=== PATIENT | male | born 1985 | race Caucasian/White ===

== ENCOUNTER 2017-04-20 10:50 | Emergency (ER) | payer SELFPAY ==
[~2017-04-20] VITALS: Ht 172.7 cm; Wt 68.0 kg
[2017-04-20 11:01] VITALS: BP 152/104
[2017-04-20] MEDS ORDERED: KETOROLAC 30 MG/1 ML IM ONE (11:30)
[2017-04-20] MEDS ORDERED: KETOROLAC 30 MG/1 ML ONE ×3 (11:33→11:48)
== END 2017-04-20 11:49 | disposition home or self-care (01) ==
LOC: ED 11:30
DX: S73.101A Unspecified sprain of right hip, initial encounter (principal); X58.XXXA Exposure to other specified factors, initial encounter; Y93.89 Activity, other specified; Y92.098 Other place in other non-institutional residence as the place of occurrence of the external cause; Y99.8 Other external cause status
CPT/HCPCS: 73502; 96372; 99284; J1885